=== PATIENT | female | born 1990 | race Caucasian/White ===

== ENCOUNTER 2018-07-04 10:56 | Emergency (ER) | payer OTHER ==
[~2018-07-04] VITALS: Ht 160 cm; Wt 59.0 kg
[~2018-07-04 10:56] MED LIST: PENICILLIN V P500 MG PO
[2018-07-04] MEDS ORDERED: KEFLEX500 MG PO (14:46)
== END 2018-07-04 15:05 | disposition home or self-care (01) ==
LOC: ED 10:56
DX: N30.90 Cystitis, unspecified without hematuria (principal); D25.9 Leiomyoma of uterus, unspecified; Z87.891 Personal history of nicotine dependence
CPT/HCPCS: 76830; 76856; 80053; 81001; 84703; 85025; 86703; 86780; 87491; 87591; 96374; 96375; 99284; J1885; J2405

== ENCOUNTER 2021-02-18 18:52 | Observation (INO) | payer OTHER ==
[~2021-02-18] VITALS: Ht 160 cm; Wt 66.0 kg
[~2021-02-18 18:52] MED LIST changes: +DELTASONE20 MG PO; +KEFLEX500 MG PO; +ZOFRAN ODT4 MG PO
[2021-02-18] MEDS ORDERED: CYMBALTA60 MG PO (19:29)
[2021-02-18] MEDS ORDERED: GABAPENTIN300 MG PO (19:29)
[2021-02-18] MEDS ORDERED: BUPROPION XL150 MG PO (19:29)
[2021-02-18] MEDS ORDERED: VITAMIN D3125 MCG PO (19:30)
[2021-02-18] MEDS ORDERED: MELATONIN5 M2 PO (19:30)
[2021-02-20] MEDS ORDERED: ACETAMINOPHEN500 MG PO (09:54)
[2021-02-20] MEDS ORDERED: IBUPROFEN600 MG PO (09:54)
[2021-02-20] MEDS ORDERED: OXYCODON-ACETA1 EAC2 PO (09:54)
--- NOTE | 2021-02-21 12:21 | HP ---
[facility] [address] [place], [place] [address] Signed ADMISSION DATE: 02/18/2021 REASON FOR ADMISSION: Acute appendicitis. HISTORY OF PRESENT ILLNESS: This 30-year-old white woman presented to the emergency room late last night, evaluated by Dr. Sebastian for abdominal pain including a CT scan, which was performed confirming appendicitis with a fecalith. Appendix was dilated and quite obviously inflamed. She was admitted with intravenous antibiotics, IV fluids, anticipating probable appendectomy today. She has had associated nausea and vomiting a few times prior to admission. Since admission, she has been on cefoxitin and pain medication, but she remains quite markedly painful. She has no prior history of abdominal surgery or any other surgery. She denies drug use or alcohol use on a routine basis. Occasionally smokes. She has no known drug allergies. Her pain currently is mostly in the right lower abdomen. 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 CURRENT MEDICINES: Include gabapentin 300 mg p.o. t.i.d., bupropion XL 150 mg p.o. b.i.d., duloxetine, Cymbalta 60 mg daily, and vitamin D3. REVIEW OF SYSTEMS: She denies any shortness of breath or chest pain. Her pain is focused in the lower abdomen in the right lower quadrant. PHYSICAL EXAMINATION: GENERAL: White woman who looks quite markedly uncomfortable. She does not look systemically toxic, not febrile. HEENT: Trachea is midline. CHEST: Shows normal respiratory excursion. Pulses regular. ABDOMEN: Shows a positive Rovsing's sign. There is no ascites. EXTREMITIES: Show no clubbing, cyanosis, or edema. LABORATORY STUDIES: Show white count of 14.2, hematocrit 42.3, platelets 497,000. Electrolytes normal. Creatinine 0.66. Review of her CT scan shows a dilated and elongated appendix with fecalith material. ASSESSMENT: The patient has acute appendicitis and marked tenderness and complains of pain. Better Electronically Signed By: HUMBERTO SHELL MD 02/21/21 1221 PATIENT NAME: ARABELLA JAVIER HISTORY AND PHYSICAL DATE OF : 86 REPORT #: [id number] PHYSICIAN: HUMBERTO SHELL MD PCP: ARTURO ARCE DO REPORT IS CONFIDENTIAL AND NOT TO BE RELEASED WITHOUT AUTHORIZATION [facility] [address], [place] [address] Signed pain control is quite obviously indicated at this time. We will order for IV Tylenol, Toradol, and change narcotic to morphine 1-2 mg daily 30 minutes as needed for pain. We will expedite her operation this morning for laparoscopic appendectomy, possible open procedure. The risks of bleeding, infection, and so forth were reviewed with her in detail. She understands and wished to proceed. MD ELIEL Currie/PROSPER /[id number] Copies: ~ Electronically Signed By: HUMBERTO SHELL MD 02/21/21 1221 PATIENT NAME: ARABELLA JAVIER VALENTINE HISTORY AND PHYSICAL DATE OF : 86 REPORT #: [id number] PHYSICIAN: HUMBERTO SHELL MD PCP: ARTURO ARCE DO REPORT IS CONFIDENTIAL AND NOT TO BE RELEASED WITHOUT AUTHORIZATION
--- NOTE | 2021-02-21 12:21 | OR ---
[facility] [address] [place], [place] [address] Signed DATE OF OPERATION: 02/19/2021 SURGEON: Humberto Shell MD PREOPERATIVE DIAGNOSIS: Acute appendicitis. POSTOPERATIVE DIAGNOSIS: Acute suppurative appendicitis. PROCEDURE: Laparoscopic appendectomy. ANESTHESIA: General endotracheal; Humberto Ley CRNA and local 10 mL of 0.25% Marcaine with epinephrine. INDICATION: This 30-year-old white woman was seen in the emergency room late last night and found to have right lower abdominal tenderness and a CT scan finding consistent with appendicitis with a dilated elongated appendix with inflammation. White count was greater than 14,000. Beta-hCG was negative. A COVID test was negative. She has been fluid resuscitated, given intravenous antibiotic cefoxitin and is now to undergo appendectomy preferred by laparoscopic approach. The risks of bleeding, infection, need for open procedure and other unforeseen complications was reviewed in detail. She understands and wished to proceed. FINDINGS: Indeed the appendix was quite markedly inflamed and dilated. It was somewhat in a retrocecal position. Complete appendectomy was performed without complication. Additionally noted was a normal-appearing liver. The gallbladder had some cholesterolosis. There were no other findings of concern. DESCRIPTION OF PROCEDURE: The patient was brought to the operating room, given a general endotracheal anesthetic. Preoperative antibiotic cefoxitin had been given. Sequential compression device stockings were used. After satisfactory general endotracheal anesthesia, the abdomen was prepared with a chlorhexidine solution and draped sterilely. An infraumbilical incision was made and using an open Farideh cannula technique, pneumoperitoneum was achieved to a level of 14 mmHg of carbon dioxide gas. Intraabdominal inspection showed Electronically Signed By: HUMBERTO SHELL MD 02/21/21 1221 PATIENT NAME: ARABELLA JAVIER OPERATIVE REPORT DATE OF : 86 REPORT #: [id number] PHYSICIAN: HUMBERTO SHELL MD PCP: JULIO ARCE DO REPORT IS CONFIDENTIAL AND NOT TO BE RELEASED WITHOUT AUTHORIZATION [facility] [address] [place], [place] [address] Signed no sign of ascites or carcinomatosis. The appendix was not visualized at that point. Examination of the liver showed it to be normal. The gallbladder was not acutely inflamed, but cholesterolosis was noted through the wall of it. The epigastric port was placed and subsequently a right lower quadrant 5 mm port using two-hand manipulation with a camera at the epigastric site, the cecum was elevated and found to have the appendix quite markedly inflamed and dilated in a retrocecal position. Using various maneuvers so forth, the appendix was able to be grasped and elevated. A window was created between the appendix and the mesoappendix. An Endo-MYRON stapling device was used to transect the appendix and flushed with the cecum. There was mild amount of bleeding on the staple line, this was secured with electrocautery. Further dissection allowed for elevation of the mesoappendix, which was ultimately well defined and the Endo-MYRON stapling device used to transect it. The appendix had a small amount of oozing of fecal material through the wall somewhat that was not frankly perforated. The appendix was placed in an endobag and the appendix extracted through the infraumbilical port site without problem on the back table by the circulating nurse. Irrigation was undertaken in the right lower quadrant. Small punctate bleeding areas were secured with electrocautery with all due care. Tisseel fibrin glue was then applied to assure no other issues. Excess irrigation fluid was suctioned free from the liver and in the pelvis. The trocars removed under direct visualization showing no sign of bleeding. The infraumbilical fascial incision was reapproximated with interrupted 0 Vicryl suture. All wounds were infiltrated with Marcaine 0.25% with epinephrine 10 mL in aggregate was used. The skin was then closed with interrupted 3-0 Vicryl after irrigation of the skin. Steri-Strips were applied. The patient was ultimately extubated and transported to the recovery room in good condition having suffered no complications. Sponge, needle, and instrument counts were reported as correct x3. MD ELIEL Currie/MODL /[id number] cc: MD Julio Waldron DO Electronically Signed By: HUMBERTO SHELL MD 02/21/21 1221 PATIENT NAME: ARABELLA JAVIER OPERATIVE REPORT DATE OF : 86 REPORT #: [id number] PHYSICIAN: HUMBERTO SHELL MD PCP: JULIO ARCE DO REPORT IS CONFIDENTIAL AND NOT TO BE RELEASED WITHOUT AUTHORIZATION [address] [address] Signed Copies: RICKY GARZON MD, ARIAN DO ~ Electronically Signed By: HUMBERTO SHELL MD 02/21/21 1221 PATIENT NAME: ARABELLA JAVIER VALENTINE OPERATIVE REPORT DATE OF : 86 REPORT #: [id number] PHYSICIAN: HUMBERTO SHELL MD PCP: JULIO ARCE DO REPORT IS CONFIDENTIAL AND NOT TO BE RELEASED WITHOUT AUTHORIZATION
--- NOTE | 2021-02-23 11:33 | PATH ---
[facility] [address] [place], [place] [address] Signed SPECIMEN(S): A APPENDIX SPECIMEN SOURCE: A. APPENDIX CLINICAL HISTORY: Acute appendicitis. FINAL PATHOLOGIC DIAGNOSIS: Appendix, appendectomy: - Acute appendicitis with periappendicitis. NAL:cml:C2NR MICROSCOPIC EXAMINATION: Histologic sections of all submitted blocks are examined by light microscopy. These findings, together with the gross examination, support the pathologic diagnosis. GROSS DESCRIPTION: The specimen, labeled "KW," and designated on the requisition "appendix," is received in formalin and consists of Specimen: Appendix with mesoappendix. Dimensions: 7.0 x 2.7 x 1.3 cm. Serosa: [place]-ochoa and congested with adherent white-ochoa exudate. Perforation: One possible area of perforation (submitted in A1). Inking: Staple line is inked black. Mucosa: pink-ochoa to hemorrhagic. Fecalith: Lumen contains soft fecal material. Additional: None. Auto Overhauler sections are submitted in cassette (A1) including entire tip, bisected. AC (under the direct supervision of a pathologist) The Gross Description was prepared using a voice recognition system. The report was reviewed for accuracy; however, sound-alike word errors, addition and/or deletions may occur. If there is any question about this report, please contact Client Services. PERFORMING LABORATORY: The technical component was performed by [facility] [employer], [address] [place] [id number] (Burglar Alarm Operator: Maria Esther Carroll MD; CLIA# [id number]). Professional interpretation was performed by PATIENT NAME: ARABELLA JAVIER PATHOLOGY DATE OF : 86 REPORT #: [id number] PHYSICIAN: CORY PATHOLOGY PCP: ARTURO ARCE DO REPORT IS CONFIDENTIAL AND NOT TO BE RELEASED WITHOUT AUTHORIZATION [facility] [address] [place], [place] [address] Signed [facility], [facility], [address] [facility] [place] [facility] [address], [place], [place] [address] (CLIA# [id number]). Diagnostician: Agustina Redding MD Pathologist Electronically Signed 02/23/2021 Copies: ~ PATIENT NAME: ARABELLA JAVIER PATHOLOGY DATE OF : 86 REPORT #: [id number] PHYSICIAN: CORY PATHOLOGY PCP: ARTURO ARCE DO REPORT IS CONFIDENTIAL AND NOT TO BE RELEASED WITHOUT AUTHORIZATION
== END 2021-02-20 14:25 | disposition home or self-care (01) ==
LOC: ED 18:52 → MS 18:53 → ED 18:53 → MS 02-20 14:25
PROVIDERS: ADMIT Surgery; ATTEND Surgery
PROC: 0DTJ4ZZ Resection of Appendix, Percutaneous Endoscopic Approach (ICD-10-PCS; principal; 2021-02-19 08:00)
DX: K35.80 Unspecified acute appendicitis (principal); K82.4 Cholesterolosis of gallbladder; F17.290 Nicotine dependence, other tobacco product, uncomplicated; Z20.822 Contact with and (suspected) exposure to COVID-19
CPT/HCPCS: 00840; 74177; 80053; 81001; 83690; 84703; 85025; 96361; 96366; 96375; 96376; 99285-25; A9270; C9803; G0378; J0131; J0330; J0694; J1100; J1170; J1885; J2250; J2405; J2550; J2704; J2765; J3010; J7030; J7121; Q9967; U0003

== ENCOUNTER 2022-02-26 14:45 | Emergency (ER) | payer OTHER ==
[~2022-02-26] VITALS: Ht 160 cm; Wt 65.8 kg
[~2022-02-26 14:45] MED LIST changes: +ACETAMINOPHEN500 MG PO; +BUPROPION XL150 MG PO; +CYMBALTA60 MG PO; +GABAPENTIN300 MG PO; +IBUPROFEN600 MG PO; +MELATONIN5 M2 PO; +OXYCODON-ACETA1 EAC2 PO; +VITAMIN D3125 MCG PO
--- OUTSIDE RECORDS SUMMARY | 2022-02-26 14:48 | XMS ---
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 [place] has no Care Guidelines for this patient. [place] VISIT COUNT (12 MO.) 1 CECILIO Hobson TOTAL 1 NOTE: Visits indicate total known visits. ED/UCC VISIT TRACKING (12 MO.) 02/26/2022 14:46 CECILIO [facility]inter[facility] [place] TYPE: Emergency COMPLAINT: - ABDOM PAIN INPATIENT VISIT TRACKING (12 MO.) No inpatient visits to display in this time frame [email or web address]
== END 2022-02-26 17:53 | disposition home or self-care (01) ==
LOC: ED 14:45
DX: R10.13 Epigastric pain (principal); Z79.899 Other long term (current) drug therapy
CPT/HCPCS: 36415; 76705; 80053; 81001; 83690; 84703; 85025; 96374; 96375; 99284-25; A9270; J1170; J2405; J7030